=== PATIENT | female | born 1980 | race Caucasian/White ===

== ENCOUNTER 2024-11-21 14:15 | Outpatient (CLI) | payer OTHER, SELFPAY ==
--- OUTSIDE RECORDS SUMMARY | 2022-09-23 06:00 | XMS_ITS | Continuity of Care Document ---
Author Organization [facility] Address [address] [place] [address] Phone Care Team Providers Care Leasing Assistant Name Role Phone House [facility] H[facility] Unavailable Unavail able Allergies, Adverse Reactions, Alerts Substance Reaction Status Criticality erythromycin base Rash Active No Informa tion Medications Medication Instructions Dosage Effective Dates (start - stop) Status Comments Nexium 20 mg capsule,delayed release take 1 capsule by oral route every day at least 1 hour before a meal swallowing whole. Do not crush or chew granules. 20 MG - Active ibuprofen 100 mg tablet take 2 tablet by oral route every 4 - 6 hours as needed with food - Active Procedures Procedure Date Kenalog 40mg/mL Asp/Injection, Major Joint W/ Ultrasound Kenalog 40mg/mL Asp/Injection, Major Joint W/ Ultrasound Synvisc One Synvisc One Kenalog 40mg/mL Asp/Injection, Major Joint W/ Ultrasound Kenalog 40mg/mL Asp/Injection, Major Joint W/ Ultrasound Office/outpatient visit,new, mod 2022 Synvisc One Asp/Injection, Major Joint W/ Ultrasound Synvisc One Office/outpatient visit,est, mod 2019 Asp/Injection, Major Joint W/ Ultrasound Kenalog Triamcinolone acetonide inj Office/outpatient visit,est, mod 2019 Kenalog Triamcinolone acetonide inj Asp/Injection, Major Joint W/ Ultrasound Office/outpatient visit,est, mod 2017 Office/outpatient visit,est, low 2008 Office/outpatient visit,new, mod 2007 Advance Directives Directive Yes / No Effective Date File Name No Information Encounters Encounter Description Practice Location Reason(s) For Visit Diagnoses Date Provider Providers Copied on Encounter [facility], [address], [id number], [place] tel:[phone] [facility] knee pain equally on both sides (chief complaint) Bilateral primary osteoarthriti s of knee 3 Mcdonough [facility] Carly. [address] [facility], [address], [id number], [place]. tel:[phone] Referring Provider: Angie Millan, [address] [place] [address] [address], [place], [address] . tel:[phone] Office/outpa [place]ient visit,new, [facility], [address], [id number], [place] tel:[phone] [facility] [place], [place] knee pain equally on both sides (chief complaint) Bilateral primary osteoarthriti s of knee 3 [facility] Carly. [address] [facility], [address], [place], [place], [id number], [place]. tel:[phone] [facility], [address], [id number], [place] tel:[phone] [facility] Outpatient knee pain on the left greater than the right (chief complaint) Bilateral primary osteoarthriti s of knee 0 Kade Rosario. [address] [facility], [address], [id number], [place]. tel:[phone] Office/outpa [place]ient visit,est, [facility], [address] [place] [address], [id number], [place] tel:[phone] [facility] Outpatient knee pain on the left greater than the right (chief complaint) Bilateral primary osteoarthriti s of knee Dec-0 8-202 0 Kade Rosario. [address] [place] [address], [id number], [place]. tel:[phone] Referring Provider: Abraham Robertson, [address] [place] [address], [id number] . tel:[phone] [facility], [address] [place] [address], [id number], [place] tel:[phone] [facility] Bilateral primary osteoarthriti s of knee Dec-3 0-202 0 Kade Rosario. [address] [place] [address], [id number], [place]. tel:[phone] Office/outpa [place]ient visit,est, [facility], [address] [place] [address], [id number], [place] tel:[phone] [facility] Outpatient knee pain equally on both sides (chief complaint) Bilateral primary osteoarthriti s of knee Oct-0 6-202 0 Kade Rosario. [address] [place] [address], [id number], [place]. tel:[phone] Referring Provider: Abraham Robertson, [address] [place] [address], [id number] . tel:[phone] Office/outpa [place]ient visit,est, [facility], [address] [place] [address], [id number], [place] tel:[phone] [facility] Outpatient right shoulder pain (chief complaint) Impingement syndrome of right shoulderBursi tis of right shoulder Sep-1 3-201 8 Kade Rosario. [address] [facility], [address], [place], [place], [id number], [place]. tel:[phone] Office/outpa tient visit,[facility], [address], [place], [place], [id number], [place] tel:[phone] [facility] Outpatient No Information 9 No Information Office/outpa tient visit,[facility], [address], [place], [place], [id number], tel:[phone] [facility] No Information No Information Referring Provider: Arslan Barba, [address] [place], [address]. tel:[phone] Family History Family Member Type Diagnosis Age At Onset Mother Problem (finding) Diabetes Mother Problem (finding) Osteoarthritis Payers Payer name Insurance type Covered green party ID Stephanie giraldo(s) [facility] [id number] Social History Type Description Quantity Date Captured Comments Alcohol Use Details Unknown Caffeine Use Details Unknown Tobacco Use Status Current non-smoker Smoking Status Never smoker Non-Smoking Tobacco Use Details : No Details Available : No Details Available Sex Female Chief Complaint And Reason For Visit From encounter dated '09/23/2022 11:00'. knee pain equally on both sides (chief complaint). Description: Suzi Gore is a 41 year old female. The patient has a known knee osteoarthritis. She presents with pain on the right and left side equally. The patient would like to proceed with an injection today. Reason For Referral Reason For Referral No Information Plan Of Treatment Date Type Action Status Referral Ordered: Synvisc One Bilateral knee ordered History Of Present Illness Encounter Date Complaint History Of Prese nt Illness knee pain equally on both sides Suzi Gore is a 41 year old female. The patient has a known knee osteoarthritis. She presents with pain on the right and left side equally. The patient would like to proceed with an injection today. knee pain equally on both sides Suzi Gore is a 41 year old female. She presents with pain on the right and left side equally. She states that the symptoms have been chronic non-traumatic. The symptoms occur constantly. The problem is unchanged. Currently the patient states that the symptoms are moderate-severe. The pain is described as dull, stabbing and aching. The symptoms occur with activity. She also reports additional pain in the lateral aspect on the right side. In addition, she also reports additional pain in the medial aspect on the right and left side equally. She rates her current pain as 6/10. The pain does not radiate. The symptoms are aggravated by ascending stairs and descending stairs. Suzi states that the symptoms are relieved by injections and rest. In addition to knee pain equally on both sides the patient is also experiencing decreased mobility and stiffness. Pertinent negatives include fever and tingling. The patient has had a previous x-ray. Prior NSAIDs include Aleve. She has been treated with visco on the right and left side equally. She reports marked improvement. She has had a brace or splint. Patient has had previous therapy. She attended physical therapy. Patient has had no prior surgeries. There were previous episodes. knee pain on the lef t greater than the right Suzi Gore is a 39 year old female. The patient has a known knee osteoarthritis. She presents with pain on the left greater than the right. The patient would like to proceed with an injection of Synvisc One today. Please see Dr. Braun' note for details. knee pain on the lef t greater than the right She presents with pain on the left greater than the right. She states that the symptoms have been chronic non-traumatic. She notes this worsened after popping the knee over the weekend. She is concerned there must be something else going on, despite having known end stage osteoarthritis. The symptoms occur constantly with intermittent worsening. Currently the patient states that the symptoms are moderate-severe. The patient is experiencing pain in the following location: anterior and posterior on the left side. The symptoms are aggravated by daily activities, ascending stairs, descending stairs, movement and walking. In addition to knee pain on the left greater than the right the patient is also experiencing crepitus and difficulty bending. The patient has had a previous x-ray. Prior NSAIDs include unspecified NSAIDS. She has been treated with a corticosteroid injection on the left side. This was in early November on both knees and provided short term relief only. Patient has had previous therapy. knee pain equally on both sides Ms Gore is a 39 year old female who complains of knee pain equally on both sides. She presents with pain on the right and left side equally. She states that the symptoms have been acute traumatic and began 2 weeks ago. The symptoms occur constantly with intermittent worsening. The problem is worse. Currently the patient states that the symptoms are moderate-severe. The pain is described as aching, sharp and throbbing. The symptoms occur with activity. The patient is experiencing pain in the following location: anterior on the right and left side equally. The pain does not radiate. The symptoms are aggravated by descending stairs, squatting, standing and walking. Suzi states that the symptoms are relieved by elevation, ice, OTC medicines and rest. In addition to knee pain equally on both sides the patient is also experiencing clicking, crepitus, crunching, decreased mobility and limping. Pertinent negatives include chills, erythema, fever, instability, locking and tingling. The patient has had a previous x-ray. Prior NSAIDs include unspecified NSAIDS. right shoulder pain Ms Gore is a 37 year old female who complains of right shoulder pain. She presents with pain on the right side. She states that the symptoms have been acute non-traumatic and began on 09/04/2017. Suzi states that the symptoms began as the result of holding a tent down against the wind multiple times at a baseball tournament. The symptoms occur occasionally. The problem is unchanged. Currently the patient states that the symptoms are moderate. The pain is described as aching, stabbing and throbbing. The symptoms occur with activity. She rates her current pain as 4/10. The symptoms are aggravated by daily activities, lifting away from the body, reaching behind, reaching overhead and sleeping in any position. Suzi states that the symptoms are relieved by ice, otc medicines and rest. In addition to right shoulder pain the patient is also experiencing nocturnal awakening. Pertinent negatives include fever, joint instability and tingling in the arms. Prior NSAIDs include unspecified NSAIDS. She has had no previous treatment. Patient has not had any pertinent therapy for this condition. Patient has had no prior surgeries. She experienced no previous injury. Functional Status Date Functional Assessmen t No Information Instructions Date Instruction Additional Infor carolyn Injection performed today as documented. Continue non-operative treatments as outlined previously. Follow up prn if symptoms return or worsen. Questions answered, verbalized understanding. Related to Bilateral primary osteoarthritis of knee After discussing the risks and benefits of an injection the patient would like to proceed with an injection into bilateral knees today. We will also institute efforts on weight control/loss. They were given instruction on icing and activity modifications. She declined a prescription for physical therapy today. They were given a instructions on use of an oral NSAID/Tylenol with PCP approval. We discussed a possible viscosupplementation injection in the future depending on her response to the injection today. Further treatment options including surgical intervention will be discussed with Dr. Braun if non-operative treatment fails to adequately control symptoms. The patient will follow up on an as needed basis. Questions answered, verbalized understanding. Related to Bilateral primary osteoarthritis of knee Injection performed today as documented. Continue non-operative treatments as outlined previously. Follow up prn if symptoms return or worsen. Questions answered, verbalized understanding. Related to Bilateral primary osteoarthritis of knee We had a long discus candy again about her severe knee OA and the fact that is a completely plausible explanation for her symptoms and this is not only normal but expected. Given the situation we discussed there is no need for an MRI as this would not change any of her treatment options. She expressed understanding. Given only short term relief with cortisone and her young age which would make TKA suboptimal we discussed proceeding with a visco injection as well as continued icing, OTC meds, and restarting her home exercises. She may benefit from a short course of repeated PT as well but would like to hold off for now. We will make arrangements for her to get visco with Ana and proceed. Follow up as needed. Related to Bilateral primary osteoarthritis of knee The patient would li ke to proceed with an injection into the involved knee today. We will also institute efforts on weight control/loss. They were given instruction on icing and activity modifications. A prescription was given for physical therapy. They were given a instructions on use of an oral NSAID/Tylenol with PCP approval. We discussed possible need for total (or partial if a candidate) knee replacement in the future if non-surgical treatment fails and the patient meets medical and rehabilitation criteria. We discussed replacement would need to be delayed at least 3 months after any injection due to infection risks. Further details of surgical intervention will be discussed if non-operative treatment fails to adequately control symptoms. The patient will follow up on an as needed basis. Questions answered, verbalized understanding. Related to Bilateral primary osteoarthritis of knee The patient would li ke to proceed with a subacromial injection today, along with continued icing, NSAIDs/Tylenol, activity modifications, and physical therapy guided rehab and/or home strengthening exercises as appropriate. We discussed we could repeat an injection again in 12 weeks or more vs. more likely obtaining an MRI-Arthro if not improved. The patient will follow up on an as needed basis and was instructed to call with any issues or concerns. Questions answered, verbalized understanding. Related to Bursitis of right shoulder Assessments Type Assessment Date assessment Bilateral primary osteoarthritis of knee Patient Care Teams Name Effective Dates (start - stop) Status Members No Information
[2024-11-21 15:14] LABS: Hematocrit 34.4 % (37.0-47.0); Hemoglobin 10.8 g/dL (12.0-15.0); Immature Granulocyte Percent A 0.4 % (0-0.5); Lymphocytes Absolute Auto 1.82 K/mm3 (0.9-3.2); Mean Corpuscular HGB Conc 31.4 g/dl (32-36); Mean Corpuscular Hemoglobin 26.5 pg (26-34); Mean Corpuscular Volume 84.5 fl (80-100); Nucleated Red Blood Cells Absolute Auto 0.000 K/mm3 (0.0-0.012); Nucleated Red Blood Cells Perc 0.0 % (0.0-0.2); Platelet Count Result 308 k/mm3 (150-375); Red Blood Count 4.07 M/mm3 (4.2-5.4); White Blood Count 10.3 K/mm3 (4.5-10.0)
--- OUTSIDE RECORDS SUMMARY | 2024-11-21 15:21 | XMS_ITS | Clinical Summary ---
Author Organization [facility] Address [address] [place] [address] Care Team Providers Care Hand Washer Name Role Phone Vane Kellogg Primary Care Provider [phone] Source Comments [facility],non-owned Affiliates and Associated Physician Practices is amultiple site organization consisting of ambulatory clinics and hospital sitesin [place], [place], [place] and [place]. This disclosure is being madepursuant to the Care Everywhere program and may not contain all information available regarding this patient. Last updated 17.[facility] - [employer] Allergies Active Allergy Reactions Criticality Noted Date Comments Erythromycin Rash Medium 04/20/2024 Medications * Be aware that medications may not be up to date on this document. Alwaysverify current medications with the patient. BIOTIN PO takes daily Active cyanocobalamin (Vitamin B-12) 250 MCG TABS Take by mouth. Ac tive Docusate Sodium (DSS) 100 MG Take 100 mg by mouth 2 times daily Active vitamin D, ergocalciferol, (Drisdol) 1.25 MG (93773 UT) capsule Take 1 (one) capsule by mouth every 7 days 5 Active FeroSul 325 (65 Fe) MG tablet Take 1 (one) tablet by mouth once daily 5 Active lisinopril (Prinivil; Zestril) 20 MG tablet Take 1 (one) tablet by mouth every morning Active metoprolol succinate XL 24hr (Toprol XL) 100 MG tablet Take 1 (one) tablet by mouth once daily 5 Active omeprazole EC (PriLOSEC OTC) 20 MG tablet Take by mouth. 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 Echo did not identify changes suggesting secondary pulmonary hypertension. Secondary Raynaud's phenomenon 05/09/2024 Overview (05/09/2024): Use of metoprolol as with all other beta blockers can exacerbate cold induced Raynaud's phenomenon but has not direct effect on limited scleroderma. Parotid gland enlargement 05/09/2024 Overview (05/09/2024): Palpable enlargement of parotid glands (prior history of parotid duct stones) and could represent secondary Sjogren's syndrome and doubt primary Sjogren's. 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 Positive LIBERTY (antinuclear an tibody) > or = 1:1280 centromere pattern 04/26/2024 Overview (04/26/2024): LIBERTY testing performed by PCP for possible CTD association with cotton wool exudates/hemorrhages OD (retinal vasculitis?). Limited scleroderma? Assessment & Plan (04/26/2024 4:22 PM CDT): By itself, a positive LIBERTY test does not indicate the presence of an autoimmune disease or the need for therapy. Approximately 15% of the normal population will have a positive LIBERTY test;and can also be seen in other conditions, such as thyroid diseases, viral infections or caused by some medications. The finding of a positive antinuclear antibody (LIBERTY), especially with a low pretest probability for an associated connective tissue disease, is currently considered to be of undetermined clinical significance (often referred to as a false positive result) with her historical elements/symptoms reviewed, current clinical examination findings, and additional available laboratory results reviewed, regarding this result not consistent with a specific diagnosis of a defined systemic connective tissue disease including systemic lupus erythematosus or systemic inflammatory rheumatic disorder by [employer] (ACR) diagnostic classification criteria at this time. Suzi Gore lacks features of any systemic autoimmune LIBERTY-related connective tissue disease. LIBERTY positivity is present in up to 30% of the normal population . Since the prevalence of SLE is only ~0.1%, most positive LIBERTY results can be attributed to other etiologies or considered represent f alse-positive results. LIBERTY positivity increases in prevalence with female gender, older age, and numerous other conditions. Antinuclear antibody overview: A test for antinuclear antibodies (LIBERTY) is common in people who are suspected of having an autoimmune or systemic connective tissue disease disorder. Antibodies are proteins that are made as part of the immune response. The result of an LIBERTY test may be used in 1 or more ways: To aid in diagnosis of an autoimmune or connective tissue disease disorder, to rule out autoimmune or connective tissue disease disorders in people presenting only with a few symptoms, to measure disease activity, and order to determine the specific type of disease that affects the patient. Of people with the following disorders or characteristics may have positive LIBERTY test results including systemic lupus erythematosus, scleroderma, mixed connective tissue disease, polymyositis/dermatomyositis, rheumatoid arthritis, rheumatoid vasculitis, Sjogren syndrome, drug-induced lupus, discoid lupus, possibly articular juvenile chronic idiopathic arthritis or ANCA related vasculitic syndromes. In addition, some people with autoimmune diseases that affect the gastrointestinal tract, thyroid gland, liver, or lung (including Linnea's thyroiditis, Graves disease, autoimmune hepatitis, primary biliary cirrhosis, primary autoimmune cholangitis, inflammatory bowel disease including Crohn's disease or ulcerative colitis, and idiopathic pulmonary arterial hypertension) can have a positive LIBERTY test. Additionally, certain chronic infectious diseases, such as mononucleosis/EBV, hepatitis C virus infection, subacute bacterial endocarditis, tuberculosis, lymphoproliferative diseases, and human immunodeficiency virus (HIV) may also produce a positive LIBERTY test. As such, a positive LIBERTY does not necessarily mean that the person has lupus or another systemic connective tissue disease disorder. As noted earlier, many healthy people may have a positive LIBERTY test. The LIBERTY test is said to be a f alse positive test result when a person test positive but does not have any other features of autoimmune disease. This situation occurs more often in women and elderly people especially when tested in individuals with a low pretest probability for systemic lupus erythematosus or other systemic rheumatic connective tissue disease. Certain medications also may increase the chance of having a positive LIBERTY test which may or may not represent a drug-induced lupus type syndrome. Depending on the symptoms that led to the initial LIBERTY screening testing may be necessary and ordered for further evaluation may or may not be recommended for 1 or more of the disorders that can be associated with a positive LIBERTY. 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 Limited variant scleroderma? Resolved Problems Problem Noted Date Diagnosed Date Resolved Date Cotton wool exudates 04/26/2024 025 Overview (04/26/2024): Imaging and records per Aida Oneil OD, [facility]. Needs retinologist evaluation AUNDREA for all potential cause (including infectious/primary ocular). Retinal hemorrhage noted on examination of right eye 04/26/2024 05/09/2024 Overview (04/26/2024): Imaging and records per Aida Oneil OD, [facility]. Needs retinologist evaluation AUNDREA for all potential cause (including infectious/primary ocular). 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 Gender Identity Not on file Sexual Orientation Not on file Last Filed Vital Signs Vital Sign Reading Time Taken Comments Blood Pressure 130/80 05/09/2024 1:05 PM CDT Pulse 75 05/09/2024 1:05 PM CDT Temperature 36.1 C (97 F) 05/09/2024 1:05 PM CDT Respiratory Rate 16 05/09/2024 1:05 PM CDT Oxygen Saturation 100% 05/09/2024 1:05 PM CDT Inhaled Oxygen Concentration - - Weight 132 kg (291 lb) 05/09/2024 1:05 PM CDT Height 177.8 cm (5' 10) 04/26/2024 3:31 PM CDT Body Mass Index 41.75 04/26/2024 3:31 PM CDT Plan of Treatment Upcoming Encounters Date Type Department Care Team (Late st Contact Info) Description 05/08/2025 11:00 AM CDT Office Visit [facility] - Rheumatology [address], [address] [place] [address] Chema Staley DO [address] [place] [address] Health Maintenance Due Date Last Done Comments LIPID TESTING 1980 MAMMOGRAM 1980 HIV SCREENING 10/04/1995 HEPATITIS C SCREENING 09/29/1998 DTAP/TDAP/TD VACCINES (1 - Tdap) 10/04/1999 HEPATITIS B VACCINE (1 of 3 - 19+ 3-dose series) 10/04/1999 PAP SMEAR 2001 HPV VACCINE (1 - 3-dose SCDM series) 10/04/2007 SCREENING FOR DIABETES 04/26/2024 COVID-19 VACCINE (3 - 2024-2 6 season) 2024 05/10/2020, 04/11/2020 INFLUENZA VACCINE (#1) 2024 , 11/03/2022 ZOSTER VACCINE (1 of 2) 2030 DEPRESSION SCREENING Completed 05/09/2024 HIB VACCINE Aged Out No longer eligi ble based on patient's age to complete this topic MENINGOCOCCAL (Group B) VACCINE SHARED DECISION-MAKING Aged Out No longer eligible based on patient's age to complete this topic MENINGOCOCCAL GROUPS A/C/Y/W VACCINE Aged Out No longer eligible b ased on patient's age to complete this topic PNEUMOCOCCAL VACCINE Aged Out No long er eligible based on patient's age to complete this topic Insurance [facility] Care Teams Hand Washer Relationship Specialty Start Date End Date Vane Kellogg PA [address] [place] [phone] PCP - General Physician Mandolin Repairer 04/27/24
--- OUTSIDE RECORDS SUMMARY | 2024-11-21 15:21 | XMS_ITS | Clinical Summary ---
Author Organization [facility] Address [address] [place] [address] Phone Care Team Providers Care Cable Television Program Director Name Role Phone Vane Kellogg TARIQ Primary Care Provider [phone] Leann Eaton MD Unavailable Allergies Active Allergy Reactions Criticality Noted Date Comments Erythromycin Rash 04/20/2024 Medications lisinopril (PRINIVIL, ZESTRIL) 20 MG Tablet Take 20 mg by mouth 2 times daily. 5 Active FeroSul 325 (65 Fe) MG Tablet Take 325 mg by mouth daily. 5 Active ergocalciferol (VITAMIN D) 63003 UNIT Capsule Take 1.25 mg by mouth once a week. 5 Active Cyanocobalamin (VITAMIN B-12 PO) Take by mouth. Activ e docusate sodium (COLACE) 100 MG Capsule Take 100 mg by mouth 2 times daily. Active hydroCHLOROthia zide 12.5 MG Tablet Take 12.5 mg by mouth every morning. 5 Active omeprazole (PriLOSEC) 40 MG CAPSULE DELAYED RELEASE TAKE ONE CAPSULE BY MOUTH TWICE DAILY 30 MINUTES BEFORE breakfast AND LUNCH Active melatonin 5 MG Chewable Tablet 5 mg. Acti ve ascorbic acid (VITAMIN C) 500 MG Tablet Take 500 mg by mouth daily. Active biotin 300 MCG Tablet Take 300 mcg by mouth daily. Active Active Problems Problem Noted Date Diagnosed Date Iron deficiency anemia 04/20/2024 Essential hypertension 10/08/2020 Encounters Date Type Department Care Team Description 11/16/2024 Results Follow-Up [facility] [address] [phone] Sydnee Acuna, MARYCHUY, SOURCING MANAGER IRON W/ IRON BINDING CAPACITY [place], FERRITIN, COMPLETE BLOOD COUNT (CBC) WITH DIFF 11/14/2024 10:30 AM CDT Lab [facility] [address] [phone] Lab, [facility] Iron deficiency anemia, unspecified iron deficiency anemia type; GAVE (gastric antral vascular ectasia); Other fatigue 11/14/2024 10:00 AM CDT Office Visit [facility] [address] [phone] Sydnee Acuna APRN, [place] Iron deficiency anemia, unspecified iron deficiency anemia type (Primary Dx); GAVE (gastric antral vascular ectasia) 11/14/2024 Travel 2024 8:30 AM CDT Clinical Support [facility] [address] [address] Nurse, Cc [place] Iron deficiency anemia, unspecified iron deficiency anemia type (Primary Dx) 2024 Travel 09/12/2024 10:00 AM CDT Office Visit [facility] [address] [phone] Leann Eaton MD Iron deficiency anemia, unspecified iron deficiency anemia type (Primary Dx); GAVE (gastric antral vascular ectasia); Other fatigue 09/12/2024 Telephone [facility] [address] [phone] Leann Eaton MD 09/12/2024 Travel from Last 3 Months Immunizations Immunization Administration Dates Next Due Influenza,Split Virus,Trivalent,Injectable,PF Family History Relation Name Status Comments Brother Alive Child 1 Alive Child 2 Alive Child 3 Alive Child 4 Alive Father Alive Mother Alive Social History Tobacco Use Types Packs/Day Years Used Date Smoking Tobacco: Never Smokeless Tobacco: Never Tobacco Cessation:Counseling Given: Not Answered Alcohol Use Standard Drinks/Week Comments Not Currently 0 (1 standard drink = 0.6 oz pur e alcohol) Comments Unknown Sex and Gender Information Value Date Recorded Sex Assigned at Not on file 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 Gender Identity Not on file Sexual Orientation Not on file Last Filed Vital Signs Vital Sign Reading Time Taken Comments Blood Pressure 108/72 11/14/2024 9:44 AM CDT Pulse 86 11/14/2024 9:44 AM CDT Temperature 36.7 C (98.1 F) 11/14/2024 9:44 AM CDT Respiratory Rate 16 11/14/2024 9:44 AM CDT Oxygen Saturation 98% 11/14/2024 9:44 AM CDT Inhaled Oxygen Concentration - - Weight 133.4 kg (294 lb) 11/14/2024 9:44 AM CDT Height 177.8 cm (5' 10) 11/14/2024 9:44 AM CDT Body Mass Index 42.18 11/14/2024 9:44 AM CDT Plan of Treatment Upcoming Encounters Date Type Department Care Team (Late st Contact Info) Description 12/12/2024 10:15 AM CDT Office Visit [facility] [address] [phone] Leann Eaton MD [address] [place] [phone] Health Maintenance Due Date Last Done Comments Hepatitis C Virus (HCV) Screening 1980 Mammogram 1980 Hepatitis B Immunization (1 of 3 - 19+ 3-dose series) 10/04/1999 Pap Smear 2001 Human Papillomavirus (HPV) Immunization (1 - 3-dose SCDM series) 10/04/2007 Cervical Cancer Screening (CCS) 2010 HPV/Cotest 2010 Discussion re Starting/Frequency of Mammograms 2020 Influenza Immunization (#1) 2024 10/0 02/2023, 11/03/2022 SARS-COV-2 Immunization ( - season) 2024 05/10/2020, 04/11/2020 Respiratory Syncytial Virus (RSV) Immunization (Adult) (1 - 1-dose 75+ series) 10/04/2055 TdaP Immunization Completed 06/07/2018, 09/15/2008 Meningococcal Immunization (ACWY) Aged Out No longer eligible b ased on patient's age to complete this topic Pneumococcal Immunization Combined Aged Out No longer eligible b ased on patient's age to complete this topic Rotavirus Immunization Aged Out No lo nger eligible based on patient's age to complete this topic Procedures Procedure Name Priority Date/Time Associated Diagnosis Comments RETICULOCYTE COUNT (RETIC) Routine 11/14/2024 10:29 AM CDT Iron deficiency anemia, unspecified iron deficiency anemia type GAVE (gastric antral vascular ectasia) Other fatigue COMPLETE BLOOD COUNT (CBC) WITH DIFF Routine 11/14/2024 10:29 AM CDT Iron deficiency anemia, unspecified iron deficiency anemia type GAVE (gastric antral vascular ectasia) FERRITIN Routine 11/14/2024 10:29 AM CDT Iron deficiency anemia, unspecified iron deficiency anemia type GAVE (gastric antral vascular ectasia) IRON W/ IRON BINDING CAPACITY OH Routine 11/14/2024 10:29 AM CDT Iron deficiency anemia, unspecified iron deficiency anemia type GAVE (gastric antral vascular ectasia) from Last 3 Months Results * (ABNORMAL) IRON W/ IRON BINDING CAPACITY OH (11/14/2024 10:29 AM CDT) IRON 37(L) 50 - 212 ug/dL [facility] UIBC 217 155 - 355 ug/dL [facility] TIBC 254(L) 261 - 478 ug/dl [facility] % Saturation 15(L) 20 - 50 % [facility] 11/14/2024 10:2 9 AM CDT Narrative [facility] - 11/14/2024 11:29 AM CDT Release to patient->Immediate us Sydnee Acuna ADULT NEUROPSYCHOLOGIST, SOURCING MANAGER LAB SEND OUTS F inal Result [facility] [address] [place] [address], * (ABNORMAL) RETICULOCYTE COUNT (RETIC) (11/14/2024 10:29 AM CDT) Reticulocyte count 2.76(H) 0.50 - 1.70 % [facility] RET-He 28.50 28.20 - 36.60 pg [facility] Comment: RET-He is a direct assessment of incorporation of iron into erythrocyte hemoglobin. It provides an indirect measure of the iron available for new erythropoiesis over past 2-4 days. Blood 11/14/2024 10:2 9 AM CDT [facility] - 11/14/2024 10:43 AM CDT Release to patient->Immediate us Leann Eaton MD HEMATOLOGY ORDERABLES Final Resu lt [facility] [place] [address], * FERRITIN (11/14/2024 10:29 AM CDT) Pathologist [facility] Ferritin 83 11 - 307 ng/mL [facility] Blood 11/14/2024 10:2 9 AM CDT [facility] - 11/15/2024 1:37 PM CDT Release to patient->Immediate Sydnee Acuna ADULT NEUROPSYCHOLOGIST, SOURCING MANAGER CHEMISTRY ORDERAB LES Final Result [facility] [place] [address], * (ABNORMAL) COMPLETE BLOOD COUNT (CBC) WITH DIFF (11/14/2024 10:29 AM CDT) WBC 9.5 4.0 - 10.0 10*3/uL [facility] HGB 11.0(L) 11.2 - 15.7 g/dL [facility] HCT 35.4 34.1 - 44.9 % [facility] PLT 315 163 - 369 10*3/uL [facility] MPV 10.4 9.4 - 12.4 fL [facility] RBC 4.13 3.93 - 5.22 10*6/uL [facility] MCV 86 79 - 95 fL [facility] MCH 26.6 25.6 - 32.2 pg [facility] MCHC 31.1(L) 32.2 - 36.5 g/dL [facility] RDW 16.2(H) 11.6 - 14.4 % [facility] Absolute Neutrophil Count 6,257 cells/uL [facility] Absolute Seg Count 6,257 1,440 - 6,600 cells/uL [facility] Absolute Lymph Count 1,801 760 - 4,000 cells/uL [facility] Absolute Holt Count 190 160 - 1,200 cells/uL [facility] Absolute Eos Count 1,138(H) 0 - 300 cells/uL [facility] Absolute Baso Count 95 0 - 100 cells/uL [facility] Segmented Neutrophils 66 36 - 66 % [facility] Lymphocytes 19 19 - 40 % [facility] Monocytes 2(L) 4 - 12 % [facility] Eosinophils 12(H) 0 - 3 % [facility] Basophils 1 0 - 1 % [facility] WBC Estimate Normal [facility] Platelet Estimate Normal [facility] RBC Morphology Abnormal [facility] Anisocytosis 1+ [facility] Blood 11/14/2024 10:2 9 AM CDT Narrative [facility] - 11/14/2024 2:00 PM CDT Release to patient->Immediate us Sydnee Acuna ADULT NEUROPSYCHOLOGIST, SOURCING MANAGER HEMATOLOGY ORDERA BLES Final Result [facility] [place] [address], from Last 3 Months Insurance [facility] Care Teams Cable Television Program Director Relationship Specialty Start Date End Date Vane Kellogg PAC [address] [place] [id number] PCP - General Physician Supervisor Scrap Preparation 04/19/24 Leann Eaton MD [address] [place] [id number] Consulting Physician Oncology 04/20/24
--- OUTSIDE RECORDS SUMMARY | 2024-11-21 15:21 | XMS_ITS | Clinical Summary ---
Author Organization [facility] Address [address] [place] [address] Care Team Providers Care Learning Strategist Name Role Phone Vane Kellogg Primary Care Provider [phone] Allergies Active Allergy Reactions Criticality Noted Date Comments Erythromycin Rash Medium 04/28/2024 Medications busPIRone (BUSPAR) 5 mg tablet Take 1 tablet (5 mg total) by mouth 2 (two) times a day 5 Active lisinopriL (PRINIVIL,ZEST RIL) 20 mg tablet Take 1 tablet (20 mg total) by mouth every morning Active ferrous sulfate 325 mg (65 mg of elemental iron) tablet Take 1 tablet (325 mg total) by mouth daily 5 Active ascorbic acid, vitamin C, (ascorbic acid) 250 mg tablet,chewabl e Active cyanocobalamin , vitamin B-12, (cyanocobalami n,vit B-12,,bulk,) powder Take by mouth Active omeprazole (PriLOSEC) 40 mg capsule Take 1 capsule (40 mg total) by mouth daily 30 capsule 11 5 08/09/19 26 Active docusate sodium (COLACE) 100 mg capsule Take 1 capsule (100 mg total) by mouth 2 (two) times a day Active ergocalciferol (VITAMIN D) 50,000 unit capsule Take 1 capsule (50,000 Units total) by mouth Active hydroCHLOROthi azide 12.5 mg tablet Take 1 tablet/capsule (12.5 mg total) by mouth every morning Active melatonin 5 mg tablet,chewabl e 5 mg Active doxycycline 100 mg tablet TAKE ONE TABLET BY MOUTH TWICE DAILY hold doxycycline 20 MG UNTIL finished with higher dose 11/08/19 25 Discontin ued(Thera py completed ) omeprazole 20 mg tablet,delayed release (DR/EC)Indicat ions:Treatment of Non-Bleeding Gastric Disorder Take 2 tablets (40 mg total) by mouth 2 (two) times a day before breakfast and lunch 120 tablet 3 5 11/08/19 25 Discontin ued(Thera py completed ) sucralfate (CARAFATE) 1 gram tablet Take 1 tablet (1 g total) by mouth 4 (four) times a day Take 1 hour before meals and at bedtime 120 tablet 11 5 11/08/19 25 Discontin ued(Thera py completed ) Active Problems Problem Noted Date Diagnosed Date 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) 10/10/2024 Anemia 10/10/2024 Fracture of cuboid 09/22/2024 Pain in right foot 09/22/2024 Stress fracture of foot 09/22/2024 Swelling of both lower extremities 08/17/2024 Swelling of lower leg 07/16/2024 DVT (deep venous thrombosis) 07/15/2024 Assessment & Plan (07/15/2024 7:43 PM CDT): Presented with LLE swelling and calf pain Likely unprovoked since no provoking factor identified Can't have AC due to GAVE - NPO - DVT study - consulted IR by ED for IVC filter placement >> pending recs - outpatient follow up for thrombophilia work up Pain of ear structure 07/12/2024 Edema of both lower extremities 07/07/2024 Raynaud's disease 05/10/2024 Gastric hemorrhage due to ga stric antral vascular ectasia (GAVE) 05/09/2024 Overview (09/22/2024): Explain problems with recurrent anemia and not likely related to limited variant scleroderma. 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 Echo did not identify changes suggesting secondary pulmonary hypertension. Perioral dermatitis 05/09/2024 Overview (09/22/2024): Palpable enlargement of parotid glands (prior history of parotid duct stones) and could represent secondary Sjogren's syndrome and doubt primary Sjogren's. Systemic sclerosis, unspecified 05/05/2024 Carotid atherosclerosis 05/05/2024 Intermittent palpitations 05/05/2024 HTN (hypertension) 04/29/2024 Assessment & Plan (07/15/2024 9:02 PM CDT): CW home lisinopril 20 mg bid Assessment & Plan (04/29/2024 12:13 AM CDT): -Continue metoprolol -Hold lisinopril due to concerns of bleeding Floaters 04/29/2024 Assessment & Plan (04/29/2024 12:52 AM CDT): -Per telephone encounter by Ophthalmology yesterday: She reports 2 weeks she saw a new floater, crescent-shaped and moves with moving her eyes. She went to tag writer who noted 2 hemorrhages in the retina and an area of ischemia (cotton wool spot per notes). She states the provider ran multiple tests in the office, unsure exactly what tests, which reportedly came back normal. She then had multiple labs run indicative of iron deficiency anemia, +LIBERTY, elevated ESR and referred to rheumatology. Reports shortness of breath and dizziness for 4 weeks. Saw rheumatology yesterday who recommended urgent evaluation by retina specialist. Symptomatically patient reports a single crescent-shaped floater of right eye that comes and goes, vision is otherwise at baseline, no blurred or double vision. Recommendations: Advised that availability for new appointments with retina specialist at [facility] are currently limited due to one provider being out of office. Will send message to retina team to inquire whether we can fit patient in needed time frame, otherwise can provide list of alternate retina specialists in the area. Patient expresses understanding. -Patient states that she was referred to a emulsion coater who recommended following up with a retina specialist. She is scheduled to see a retina specialist at [facility]. Gastric antral vascular ectasia 04/28/2024 Assessment & Plan (07/15/2024 2:25 PM CDT): CW home PPI daily Assessment & Plan (04/29/2024 12:53 AM CDT): See above Secondary Raynaud's phenomenon 04/26/2024 Overview (09/22/2024): Use of metoprolol as with all other beta blockers can exacerbate cold induced Raynaud's phenomenon but has not direct effect on limited scleroderma. Abnormal laboratory test result 04/20/2024 Anxiety state 04/20/2024 Dyspnea 04/20/2024 Thyroid nodule 04/18/2024 Microcytic anemia 04/17/2024 Assessment & Plan (04/29/2024 12:54 AM CDT): -Patient states that she had eye issues 2 weeks ago and her Hb was found to be 7.1. She was referred to foil stamp operator who provided iron infusion on Wednesday and repeat HGB was 7.4. Due to lack of improvement in hemoglobin, she was referred to an EGD at [facility] yesterday and was found to have GAVE in the stomach antrum. Linear watermelon stripe hyperemia with tactile bleeding was noted, but they did not have the equipment to cauterize or treat per patient's report. Colonoscopy in 2019 was negative. -HGB 7.4 Plan: -NPO -Type and screen. Consented for blood transfusion. -CBC every 8 hours -GI consult in a.m. -Check iron studies -PPI Low hemoglobin 04/17/2024 Assessment & Plan (07/15/2024 2:25 PM CDT): Patient has hx of RAYO and received iron transfusion, last iron transfusion was on 05/30 Hgb is 11.5, improved than prior Antinuclear antibody (LIBERTY) positive 04/17/2024 Overview (09/22/2024): LIBERTY testing performed by PCP for possible CTD association with cotton wool exudates/hemorrhages OD (retinal vasculitis?). Limited scleroderma? Cobalamin deficiency 04/17/2024 Cotton wool spots 04/11/2024 Retinal hemorrhage 04/11/2024 Pruritic rash 02/17/2024 Abnormal electrocardiogram (ECG) (EKG) Cervical lymphadenopathy 01/30/2024 Iron deficiency 11/26/2023 Vaginitis 09/06/2023 Prediabetes 07/21/2023 Vitamin D deficiency 07/07/2023 Motion sickness 11/03/2022 Iron deficiency anemia 07/25/2021 Benign essential hypertension 10/08/2020 Gastroesophageal reflux disease 04/25/2019 Migraine 04/25/2019 Acute serous otitis media 03/03/2015 Angina pectoris 04/08/2014 Dysfunctional uterine bleeding 12/05/2013 Inflammatory disorder of lower extremity 014 Inflammation of intestine due to Norovirus 05/31 Obesity 05/31/2012 Acute sinusitis 02/09/2012 Plantar fascial fibromatosis 01/28/2012 Ulcerative colitis 01/28/2012 Calcaneal spur 01/27/2012 Noninfectious gastroenteritis 01/14/2012 Encounters Date Type Department Care Team Description 11/07/2024 8:00 AM CDT Anesthesia Event [facility] Digestive Disease [address] [address] Mila Haywood MD McKinney, Kenya W., CRNA 11/07/2024 8:00 AM CDT - 11/07/2024 8:30 AM CDT Surgery [facility] [address] [address] Xu Coffey MD ESOPHAGOGASTRODUODENOSCOPY WITH ABLATION 11/07/2024 7:15 AM CDT - 11/07/2024 9:07 AM CDT Hospital Encounter [facility] [address] [address] Xu Coffey MD Discharge Disposition: Discharge to home or self care 11/07/2024 6:35 AM CDT Lab [facility] [address] [place] [phone] GAVE (gastric antral vascula r ectasia); Iron deficiency anemia secondary to blood loss (chronic); Anemia, unspecified type 10/10/2024 Telephone [facility] Gastroenterology [address] [place] [id number] Rosanna Sanon, LEYDI Scheduling Testing/Treatment 10/10/2024 Telephone [facility] Medicine Gastroenterology [address] [facility] 12th [place] [phone] Debbie Newby LPN Schedule GI Procedure 09/25/2024 1:00 PM CDT Office Visit [facility] Medicine Surgery [id number] [place] [address] Medical Office [address] [place] [address] Parish Gomez MD Acute deep vein thrombosis (DVT) of left peroneal vein (HCC) (Primary Dx) 09/25/2024 10:18 AM CDT - 09/25/2024 11:59 PM CDT Hospital Encounter [facility]ascular Lab [address] [place] [address] Leg swelling Discharge Disposition: Discharge to home or self care 09/07/2024 Orders Only [facility] Surgery [id number] [place] [address] Medical Office [address], [place] [address] Parish Gomez MD Leg swelling (Primary Dx) from Last 3 Months Surgical History Surgery Date Site/Laterality Comments SECTION COLONOSCOPY ESOPHAGOGASTRODUODENOSCOPY TONSILLECTOMY AND ADENOIDECTOMY TUBAL LIGATION ABLATION Medical History Medical History Date Comments GAVE (gastric antral vascular ectasia) Hypertension Family History Relation Name Status Comments Father Alive Mother Alive Social History Tobacco Use Types Packs/Day Years Used Date Smoking Tobacco: Never Smokeless Tobacco: Never Tobacco Cessation:Counseling Given: Not Answered Alcohol Use Standard Drinks/Week Comments Yes 0 (1 standard drink = 0.6 oz pur e alcohol) AUDIT-C Answer Date Recorded Q1: How often do you have a drink containing alc ohol? Monthly or less 11/07/2024 Q2: How many drinks containi ng alcohol do you have on a typical day when you are drinking? 1 or 2 11/07/2024 Q3: How often do you have si x or more drinks on one occasion? Never 11/07/2024 Personal Safety Answer Date Recorded Have you ever been in or are you currently in a harmful physical or emotional relationship or is someone making you feel afraid or unsafe? Denies 11/07/2024 Comments No Sex and Gender Information Value Date Recorded Sex Assigned at Not on file Legal Sex Female 1:41 PM SENIOR ANALYST Gender Identity Not on file Sexual Orientation Not on file Obstetrics History Last Filed Vital Signs Vital Sign Reading Time Taken Comments Blood Pressure 124/70 11/07/2024 8:42 AM CDT Pulse 78 11/07/2024 8:42 AM CDT Temperature 36.2 C (97.2 F) 11/07/2024 8:22 AM CDT Respiratory Rate 17 11/07/2024 8:42 AM CDT Oxygen Saturation 97% 11/07/2024 8:42 AM CDT Inhaled Oxygen Concentration - - Weight 131.5 kg (290 lb) 11/07/2024 7:43 AM CDT Height 177.8 cm (5' 10) 11/07/2024 7:43 AM CDT Body Mass Index 41.61 11/07/2024 7:43 AM CDT Plan of Treatment Health Maintenance Due Date Last Done Comments Breast Cancer Screening-Mammogram 1980 Cervical Cancer Screening 1980 Depression Screening 1980 Hepatitis C Screening 1980 Varicella Vaccines (1 of 2 - 13+ 2-dose series) 1993 Hepatitis B Screening 1998 Regular Well Visit/Exam 18-64 1998 HPV Vaccines (1 - 3-dose SCDM series) 10/04/2007 Covid-19 Vaccine ( - season) 2024 05/10/2020, 04/11/2020 Influenza Vaccine (#1) 2024 11/16/2023, 2022 DTaP/Tdap/Td Vaccine (8 - Td or Tdap) 06/07/2028 06/07/2018, 09/15/2008, 04/16/2007, Additional history exists Pneumococcal vaccine <65 Aged Out No longer eligible based on patient's age to complete this topic Procedures Procedure Name Priority Date/Time Associated Diagnosis Comments ESOPHAGOGASTRODUODENOSCOPY W ITH ABLATION 11/07/2024 8:00 AM CDT 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) Anemia, unspecified type EGD 11/07/2024 7:28 AM CDT CBC WITHOUT DIFFERENTIAL Routine 025 7:01 AM CDT 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) Anemia, unspecified type US VENOUS REFLUX BILATERAL Schedule Routine, Read Routine (OP Routine) 09/25/2024 11:54 AM CDT Leg swelling from Last 3 Months Results * EGD (11/07/2024 7:28 AM CDT) Anatomical Region Laterality Modality Other Narrative Procedure Note Xu Coffey MD - 11/07/2024 7:28 AM CDT GI ENDOSCOPY [facility] Patient Name: Suzi Gore Procedure Date: 11/07/2024 7:28 AM Date of : 1980 Admit Type: Outpatient Age: 44 Gender: Female Attending MD: Xu Coffey M.D., Room: [facility] ENDOSCOPY ROOM 1 Note Status: Finalized Procedure: Upper GI endoscopy Indications: Watermelon stomach (GAVE syndrome) Referring MD: Vane Kellogg PA-C Providers: Xu Coffey M.D. Comorbidities See the other procedure note for documentation of comorbidities Medicines: Monitored Anesthesia Care Complications: No immediate complications. Estimated Blood Loss: Estimated blood loss was minimal. Procedure: Pre-Anesthesia Assessment: - Prior to the procedure, a History and Physicalwas performed, and patient medications, allergies and sensitivities were reviewed. The patient'stolerance of previous anesthesia was reviewed. - Immediately prior to administration ofmedications, the patient was re-assessed for adequacy to receive sedatives. The benefits, risks, and alternatives to theprocedure and sedation were discussed and informed consentwas obtained. The scope was passed under direct vision. The GIF [id number] endoscope was introduced through the mouth, and advanced to the second partof duodenum. The upper GI endoscopy was accomplished without difficulty. The patient tolerated the procedure well. Findings: The esophagus was normal. Moderate, localized gastric antral vascular ectasia with bleeding was present in the gastric antrum. Coagulation for hemostasis using argon plasma at 0.8 liters/minute and 30 woods was successful. The examined duodenum was normal. Impression: - Normal esophagus. - Gastric antral vascular ectasia with bleeding. Treated with argon plasma coagulation (APC). - Normal examined duodenum. - No specimens collected. Recommendation: - The patient will be observed post-procedure,until all discharge criteria are met. - Observe patient's clinical course. - Continue PPI BID therapy. - Avoidance of ibuprofen, naproxen, or other non-steroidal anti-inflammatory drugs. - Full liquid diet for 24 hours, then advance as tolerates. - Carafate 1 g QID x 2 weeks. - Return to referring physician as previously scheduled. - Repeat EGD in 3 months with RFA therapy. - In the unusual situation that you developabdominal, bleeding or other significant problems in the days following this procedure please call [phone] ask for my nurse, Ghislaine Washington. After hours and evenings please call [phone] and speak to theGI fellow call center support consultant. Please tell the fellow that Dr. Coffey did your procedure and that you were instructed to have the fellow call me or thephysician covering for me to discuss the management of your condition. If you have an urgent problem, please goto the nearest emergency room and have the ER doctorcall my office during the day or [facility] transfer ([phone]) center after hours and weekends to arrange admission or transfer to our facility. Attending Participation: I personally performed the entire procedure. Electronically signed by Xu Coffey MD Xu Coffey M.D. 11/07/2024 8:20:32 AM . Number of Addenda: 0 Note Initiated On: 11/07/2024 7:28 AM Xu Coffey MD ENDOSCOPY PROCEDURES Final Result * (ABNORMAL) CBC without differential (11/07/2024 7:01 AM CDT) WBC 9.11 3.80 - 9.90 K/cumm Hgb 9.9(L) 11.9 - 15.5 g/dL [facility] Hct 31.2(L) 35.6 - 45.5 % [facility] Plt 278 150 - 400 K/cumm [facility] MPV 11.1 9.1 - 12.3 fL [facility] RBC 3.73(L) 3.90 - 5.20 M/cumm [facility] MCV 83.6 81.3 - 96.4 fL [facility] MCH 26.5(L) 27.1 - 33.3 pg [facility] MCHC 31.7(L) 32.3 - 35.7 g/dL [facility] RDW CV 16.5(H) 11.1 - 14.9 % [facility] RDW SD 50.1(H) 35.7 - 48.1 fL [facility] NRBC abs 0.00 0.00 - 0.01 K/cumm [facility] Blood 11/07/2024 7:01 AM CDT 11/07/2024 7:14 AM CDT us Xu Coffey MD LAB BLOOD ORDERABLES Final Result [facility] R[facility] Department [place] [address] * US Venous Reflux Bilateral (09/25/2024 11:54 AM CDT) Anatomical Region Laterality Modality Vascular Bilateral Ultrasound 09/25/2024 3:40 PM CDT Impressions 09/25/2024 3:40 PM CDT There is no evidence of acute DVT or superficial venous thrombus in the right and left lower extremity. There is no reflux noted in the deep venous system and superficial venous system of the right and left lower extremities. Electronically signed by: Tamara Burgos M.D. Narrative 09/25/2024 3:40 PM CDT EXAMINATION: US VENOUS REFLUX BILATERAL HISTORY: The patient is a 43-year-old female who presents with bilateral lower extremity swelling. Comparison made with the prior study dated 07/15/2024. TECHNIQUE: Bilateral lower extremity venous duplex study was performed with lraios scale imaging, color Doppler imaging and spectral waveform analysis. Both the deep venous system and superficial venous system of both lower extremities were evaluated. FINDINGS: Deep system evaluation: There is normal compressibility and phasicity in the right and the left common femoral, femoral vein and popliteal veins. Imaging of these veins reveals no thrombus or reflux. Superficial venous system evaluation: Right side: The diameter of the right greater saphenous vein at the saphenofemoral junction is 8.6 mm, in the proximal thigh is 5.1 mm, the mid thigh is 3.5 mm and distal thigh is 4.8 mm. The diameter of the right greater saphenous vein in the proximal calf is 2.6 mm and distal calf is 2.9 mm. There is no reflux or superficial venous thrombus seen in the right greater saphenous vein. The diameter of the right lesser saphenous vein in the proximal calf is 2.5 mm and distal calf is 1.9 mm. There is no reflux or superficial venous thrombus seen in this vein. Left side: The diameter of the left greater saphenous vein at the saphenofemoral junction is 9.0 mm, in the proximal thigh is 2.6 mm, the mid thigh is 2.9 mm and distal thigh is 2.2 mm. The diameter of the left greater saphenous vein in the proximal calf is 2.0 mm and distal calf is 2.5 mm. There is no reflux or superficial venous thrombus seen in this vein. The diameter of the left lesser saphenous vein is 1.8 mm proximally and 1.7 mm and the distal calf. There is no superficial venous thrombus or reflux seen in this vein. Procedure Note Tamara Burgos MD - 09/25/2024 EXAMINATION: US VENOUS REFLUX BILATERAL HISTORY: The patient is a 43-year-old female who presents with bilateral lower extremity swelling. Comparison made with the prior study dated 07/15/2024. TECHNIQUE: Bilateral lower extremity venous duplex study was performed with larios scale imaging, color Doppler imaging and spectral waveform analysis. Both the deep venous system and superficial venous system of both lower extremities were evaluated. FINDINGS: Deep system evaluation: There is normal compressibility and phasicity in the right and the left common femoral, femoral vein and popliteal veins. Imaging of these veins reveals no thrombus or reflux. Superficial venous system evaluation: Right side: The diameter of the right greater saphenous vein at the saphenofemoral junction is 8.6 mm, in the proximal thigh is 5.1 mm, the mid thigh is 3.5 mm and distal thigh is 4.8 mm. The diameter of the right greater saphenous vein in the proximal calf is 2.6 mm and distal calf is 2.9 mm. There is no reflux or superficial venous thrombus seen in the right greater saphenous vein. The diameter of the right lesser saphenous vein in the proximal calf is 2.5 mm and distal calf is 1.9 mm. There is no reflux or superficial venous thrombus seen in this vein. Left side: The diameter of the left greater saphenous vein at the saphenofemoral junction is 9.0 mm, in the proximal thigh is 2.6 mm, the mid thigh is 2.9 mm and distal thigh is 2.2 mm. The diameter of the left greater saphenous vein in the proximal calf is 2.0 mm and distal calf is 2.5 mm. There is no reflux or superficial venous thrombus seen in this vein. The diameter of the left lesser saphenous vein is 1.8 mm proximally and 1.7 mm and the distal calf. There is no superficial venous thrombus or reflux seen in this vein. IMPRESSION: There is no evidence of acute DVT or superficial venous thrombus in the right and left lower extremity. There is no reflux noted in the deep venous system and superficial venous system of the right and left lower extremities. Electronically signed by: Tamara Burgos M.D. Parish Gomez MD [facility] PROCEDURES Final Resu lt from Last 3 Months Insurance [facility] EMERGENCY DEPARTMENT PPO [facility] [employer] PPO Advance Directives For more information, please contact: [phone] * Full Code (Latest Code Status on File) Date Activated Date Inactivated Comments 11/07/2024 7:28 AM 11/07/2024 1:12 PM * Full Code Date Activated Date Inactivated Comments 08/08/2024 8:27 AM 08/08/2024 2:12 PM * Full Code Date Activated Date Inactivated Comments 07/15/2024 6:42 PM 07/16/2024 2:41 PM * Full Code Date Activated Date Inactivated Comments 04/29/2024 12:24 AM 04/29/2024 10:32 PM Care Teams Learning Strategist Relationship Specialty Start Date End Date Vane Kellogg PA [address] [place] [id number] PCP - General Family Practice 04/29/24
--- OUTSIDE RECORDS SUMMARY | 2024-11-21 15:21 | XMS_ITS | Encounter Summary ---
Author Organization [facility] Address [address] [place] [address] Phone Care Team Providers Care Extrusion Die Repairer Name Role Phone Vane Kellogg Primary Care Provider [phone] Leann Eaton MD Unavailable Encounter Details Date Type Department Care Team (Late st Contact Info) Description 11/16/2024 Results Follow-Up [facility] [address] [place] [address] Sydnee Acuna, PHOTOCOPY OPERATOR, INFANTRY ASSAULTMAN [address] [place] [address] IRON W/ IRON BINDING CAPACITY [place], FERRITIN, COMPLETE BLOOD COUNT (CBC) WITH DIFF Social History Tobacco Use Types Packs/Day Years Used Date Smoking Tobacco: Never Smokeless Tobacco: Never Alcohol Use Standard Drinks/Week Comments Not Currently 0 (1 standard drink = 0.6 oz pur e alcohol) Comments Unknown Sex and Gender Information Value Date Recorded Sex Assigned at Not on file Legal Sex Female 2:31 PM INSOLE TACKER Gender Identity Not on file Sexual Orientation Not on file documented as of this encounter Progress Notes * Leticia Lomeli RN - 11/17/2024 9:14 AM CDT Patient returned call and notified of note below. documented in this encounter Miscellaneous Notes * Telephone Encounter - Leticia Lomeli RN - 11/17/2024 9:10 AM CDT Attempted to contact patient. LVM to return call to clinic. * Telephone Encounter - Leticia Lomeli RN - 11/17/2024 9:08 AM CDT ----- Message from Sydnee Acuna APRN, ALYSSIA sent at 11/16/2024 4:25 PM CDT ----- Please let patient know that I discussed labs with Dr. Eaton. Iron levels look to be inflammation than true iron deficiency. Ferritin is improving and up to 83. No need for IV iron at this time. Continue on oral iron. ----- Message ----- From: Kanika Locke Bkr Lab Results In Sent: 11/14/2024 11:29 AM CDT To: Sydnee Acuna APRN, INFANTRY ASSAULTMAN documented in this encounter Plan of Treatment Upcoming Encounters Date Type Department Care Team (Late Contact Info) Description 12/12/2024 10:15 AM CDT [facility] [address] [phone] Leann Eaton MD [address] [place] [phone] documented as of this encounter Visit Diagnoses Not on filedocumented in this encounter Care Teams Extrusion Die Repairer Relationship Specialty Start Date End Date Vane Kellogg PAC [address] [place] [id number] PCP - General Physician Oyster Farmer 04/19/24 Leann Eaton MD [address] [place] [phone] Consulting Physician Oncology 04/20/24 documented as of this encounter
--- OUTSIDE RECORDS SUMMARY | 2024-11-21 15:21 | XMS_ITS | Clinical Summary ---
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 Name Role Phone Unavailable Primary Care Provider Unavailabl e Social History Tobacco Use Types Packs/Day Years Used Date Smoking Tobacco: Never Assessed Comments Unknown Sex and Gender Information Value Date Recorded Sex Assigned at Not on file Legal Sex Female 9:10 PM CDT Gender Identity Not on file Sexual Orientation Not on file Plan of Treatment Health Maintenance Due Date Last Done Comments Hepatitis C Screening ages 1 8 to 79 once 1980 MMR VACCINES (1 of 1 - Stand erma series) 1981 YEARLY WELLNESS EXAM 10/04/1983 DEPRESSION SCREENING 1992 Varicella Vaccine (1 of 2 - 13+ 2-dose series) 1993 HPV VACCINES (1 - 3-dose series) 10/04/1995 ADULT TETANUS 10/04/1999 HEPATITIS B VACCINES (1 of 3 - 19+ 3-dose series) 10/04/1999 CERVICAL CANCER SCREENING 2001 BREAST CANCER SCREENING 2020 Influenza Vaccine 09/15/2024 11/16/2023 COVID-19 Immunization (1 - 2 25 season) 2024 Zoster Vaccine (Recombinant Vaccine) (1 of 2) 2030 HEPATITIS A VACCINES Aged Out No long er eligible based on patient's age to complete this topic HIB VACCINES Aged Out No longer eligi ble based on patient's age to complete this topic IPV VACCINES Aged Out No longer eligi ble based on patient's age to complete this topic MENINGOCOCCAL VACCINE Aged Out No carlos annelise eligible based on patient's age to complete this topic Meningococcal B Vaccine Aged Out No l onger eligible based on patient's age to complete this topic Pneumococcal Vaccine: Peds t o 50 & At-Risk Patients Aged Out No longer eligible b ased on patient's age to complete this topic ROTAVIRUS VACCINES Aged Out No longer eligible based on patient's age to complete this topic
== END 2024-11-21 14:16 | disposition home or self-care (01) ==
DX: D50.9 Iron deficiency anemia, unspecified (principal); K31.819 Angiodysplasia of stomach and duodenum without bleeding
CPT/HCPCS: 36415; 85025